=== PATIENT | female | born 1950 | race Caucasian/White ===

== ENCOUNTER 2020-03-07 19:08 | Emergency (ER) | payer OTHER ==
[2020-03-07 19:16] VITALS: BP 146/79; PULSE 73; TEMP 98.6; BMI 28.7
== END 2020-03-07 19:43 | disposition home or self-care (01) ==
LOC: FER 19:08
DX: S61.317A Laceration without foreign body of left little finger with damage to nail, initial encounter (principal)
CPT/HCPCS: 99283-25